=== PATIENT | female | born 1940 | race Caucasian/White ===

== ENCOUNTER 2020-04-11 12:39 | Emergency (ER) | payer MEDICARE, SELFPAY ==
[2020-04-11 13:02] VITALS: BP 155/79; PULSE 88; RESP 18; TEMP 36.4; O2SAT 96; BMI 27.4
[2020-04-11 13:10] VITALS: BP 155/79; PULSE 88; RESP 18; TEMP 36.4; O2SAT 96; BMI 27.3
--- NOTE | 2020-04-11 13:29 | HMH.EDUTC ---
[facility] [place] Clinical Impression: Hernia of abdominal cavity Abdominal pain Qualifiers: Abdominal location: upper abdomen, unspecified Qualified Code(s): R10.10 - Upper abdominal pain, unspecified Disposition: Home, Self-Care Condition on Discharge: Good Instructions: Ventral Hernia Additional Instructions: Follow up with your primary care doctor. I put in a referral with a surgeon for further evaluation of your abdominal hernia. Please call Dr. Mayen's office and schedule an appointment. Take the zofran for nausea. GO TO THE ER FRO ANY WORSENING SYMPTOMS OR CONCERNS Referrals: PCP,No [Primary Care Provider] - José Miguel Mayen MD [Staff Physician] - Time of Disposition: 13:33 Medical Decision Making - Medical Records Medical records reviewed: No: I reviewed the patient's medical records. - [place] Inquiry Pt receiving controlled substance: No Vital Signs: 04/11/20 13:02 04/11/20 13:10 04/11/20 13:48 Temperature 97.6 F 97.6 F 97.6 F Temperature Source Oral Oral Pulse Rate 88 Pulse Rate [Left Radial] 88 88 Respiratory Rate 18 18 18 Blood Pressure 155/79 H Blood Pressure [Right Arm] 155/79 H 155/79 H Blood Pressure Mean [Right Arm] 104 104 Blood Pressure Source [Right Arm] Automatic Cuff Automatic Cuff Blood Pressure Position [Right Arm] Sitting Sitting 02 Sat by Pulse Oximetry 96 96 Oxygen Delivery Method Room Air Room Air [facility] [place] - General Stated complaint: stomach pain Time Seen by Provider: 04/11/20 13:30 Mode of Arrival: Ambulatory Source of Information: Patient Limitations: No Limitations Description of Symptoms (Recalled from Triage Doc. by RN): Pt states that her friend brought her to this hospital to see what they can do for her known hernia. States her family doctor is aware and says he won't worry until she starts having pain. Pt denies any pain at this time, does say that her hernia area is swollen but that is her norm. HEENT Symptoms (Recalled from RN notes): No Resp Symptoms (Recalled from RN notes): No Skin Symptoms (Recalled from RN notes): No MS Symptoms (Recalled from RN notes): No Functional Status (Recalled from RN notes): WNL - History of Present Illness Provider Complaint: She c/o a long history of intermitent abdominal swelling and abdominal pain. She denies any pain at this time. She has a history of having an abdominal hernia. Her pcp has been watching the hernia, but she came here to see if there was anything else that could be done for it. - Worker's Comp Is this a Worker's Comp case?: No [facility] History - Hepatitis A Screen Drug use history?: No High risk sexual behaviors?: No History of sexually transmitted infection?: No Currently employed?: No Childcare worker?: No Do you have indoor plumbing?: Yes Do you have electricity?: Yes Attestation statement:: This patient has been screened for Hepatitis A risk factors. I have reviewed the patient's past medical history: Yes Medical History: Reports:: Diabetes Mellitus Type 2 - Social History Alcohol Intake: never Occupational Status: other ROS Obtained: Yes All systems reviewed & no additional complaints - Constitutional Constitutional: Denies chills, Denies fever(s) - Gastrointestinal Gastrointestingal: Reports: as per HPI - Genitourinary Female Genitourinary: Denies dysuria, Denies urinary frequency, Denies urinary incontinence, Denies urinary hesitancy, Denies urinary urgency Physical Exam - General General appearance: alert, in no apparent distress - Head Head exam: atraumatic, normocephalic, normal inspection - Eye Eye exam: Present: normal appearance, PERRL, EOMI - ENT ENT exam: Present: normal exam, normal oropharynx, mucous membranes moist, TM's normal bilaterally, normal external ear exam - Neck Neck exam: Present: normal inspection, full ROM, trachea midline. Absent: meningismus, lymphadenopathy - Chest Chest inspection: Present: normal inspection,
[2020-04-11 13:48] VITALS: BP 155/79; PULSE 88; RESP 18; TEMP 36.4; O2SAT 96
== END 2020-04-11 13:50 | disposition home or self-care (01) ==
LOC: ER 12:51 → UTC 13:05
PROVIDERS: Emergency Provider Nurse Practitioner Family
DX: K46.9 Unspecified abdominal hernia without obstruction or gangrene (principal); E11.9 Type 2 diabetes mellitus without complications
CPT/HCPCS: G0463; 99201